=== PATIENT | female | born 1990 | race Caucasian/White ===

== ENCOUNTER → 2017-01-14 | Outpatient (CLI) | payer BC ==
--- NOTE | 2017-01-14 15:50 | RAD ---
Indication:Nausea and vomiting Grayscale images of the abdomen were obtained. Comparison none Liver:No focal mass is seen in the visualized liver. Gallbladder:Normal. The common bile duct diameter of 3 to 4 mm is normal Spleen:Normal Pancreas:Normal Kidneys:Normal Abdominal aorta and IVC:Normal Ancillary findings:None Impression:Normal study
== END | disposition home or self-care (01) ==
LOC: US 15:06
PROVIDERS: ATTEND Internal Medicine Gastroenterology
DX: R11.2 Nausea with vomiting, unspecified (principal)
CPT/HCPCS: 76700

== ENCOUNTER 2017-01-21 18:55 | Emergency (ER) | payer BC ==
[~2017-01-21] VITALS: Ht 162.6 cm; Wt 72.6 kg
--- NOTE | 2017-01-21 19:16 | PHYS DOC ---
Adult General Chief Complaint Chief Complaint: NAUSEA/VOMITING/DIARRHA HPI HPI Patient is a 26 year old female presenting to the emergency department for evaluation of abdominal pain nausea vomiting and diarrhea. The symptoms have been going on for approximately 6 days but per mother she has been having monthly episodes like this and has seen a specialist including GI and had upper endoscopy and ultrasound. Abdominal pain is primarily epigastric and right upper quadrant and associated with nonbloody nonbilious emesis. She said that she has had no nausea and vomiting today that she has approximate 5-6 episodes of watery diarrhea a day. Diarrhea is nonbloody. She denies any recent antibiotic use or foreign travel. Patient has no fevers or chills. She is nontoxic appearing in no obvious distress with normal vital signs. Review of Systems Review of Systems Constitutional: Denies fever or chills [] Respiratory: Denies cough or shortness of breath [] Cardiovascular: No additional information not addressed in HPI [] GI: + abdominal pain, nausea, vomiting, diarrhea [] : Denies dysuria or hematuria [] Musculoskeletal: Denies back pain or joint pain [] Neurologic: Denies headache, focal weakness or sensory changes [] Current Medications Current Medications Current Medications Medications (Trade) Dose Ordered Sig/Cole Start Time Stop Time Status Last Admin Dose Admin Iohexol (Omnipaque 300 Mg/ml) 75 ml STK-MED ONCE 01/21/17 21:44 01/21/17 21:45 DC Allergies Allergies Allergies Coded Allergies Type Severity Reaction Last Updated Verified No Known Drug Allergies 01/21/17 No Physical Exam Physical Exam Constitutional: Well developed, well nourished, no acute distress, non-toxic appearance. [] Cardiovascular:Heart rate regular rhythm, no murmur [] Lungs & Thorax: Bilateral breath sounds clear to auscultation [] Abdomen: Bowel sounds normal, soft, + epigastric and RUQ tenderness, no rebound or guarding, no masses, no pulsatile masses. [] Skin: Warm, dry, no erythema, no rash. [] Back: No tenderness, no CVA tenderness. [] Current Patient Data Vital Signs Vital Signs Date Time Temp Pulse Resp B/P (MAP) Pulse Ox O2 Delivery O2 Flow Rate FiO2 01/21/17 21:45 84 29 106/69 (81) 91 Room Air 01/21/17 19:28 98.2 98.2 Lab Values Laboratory Tests Test 01/21/17 19:10 01/21/17 19:30 White Blood Count 8.5 x10^3/uL (4.0-11.0) Red Blood Count 4.82 x10^6/uL (3.50-5.40) Hemoglobin 14.2 g/dL (12.0-15.5) Hematocrit 42.7 % (36.0-47.0) Mean Corpuscular Volume 89 fL (79-100) Mean Corpuscular Hemoglobin 30 pg (25-35) Mean Corpuscular Hemoglobin Concent 33 g/dL (31-37) Red Cell Distribution Width 13.4 % (11.5-14.5) Platelet Count 334 x10^3/uL (140-400) Neutrophils (%) (Auto) 61 % (31-73) Lymphocytes (%) (Auto) 27 % (24-48) Monocytes (%) (Auto) 9 % (0-9) Eosinophils (%) (Auto) 3 % (0-3) Basophils (%) (Auto) 1 % (0-3) Neutrophils # (Auto) 5.2 x10^3uL (1.8-7.7) Lymphocytes # (Auto) 2.3 x10^3/uL (1.0-4.8) Monocytes # (Auto) 0.8 x10^3/uL (0.0-1.1) Eosinophils # (Auto) 0.2 x10^3/uL (0.0-0.7) Basophils # (Auto) 0.1 x10^3/uL (0.0-0.2) Urine Collection Type Unknown Urine Color Yellow Urine Clarity Cloudy Urine pH 6.0 Urine Specific [place] 1.020 Urine Protein Negative mg/dL (NEG-TRACE) Urine Glucose (UA) Negative mg/dL (NEG) Urine Ketones (Stick) Trace mg/dL (NEG) Urine Blood Negative (NEG) Urine Nitrite Negative (NEG) Urine Bilirubin Small (NEG) Urine Urobilinogen Dipstick 0.2 mg/dL (0.2 mg/dL) Urine Leukocyte Esterase Negative (NEG) Urine RBC 0 /HPF (0-2) Urine WBC Occ /HPF (0-4) Urine Squamous Epithelial Cells Many /LPF Urine Bacteria Moderate /HPF (0-FEW) Urine Mucus Marked /LPF Sodium Level 140 mmol/L (136-145) Potassium Level 3.5 mmol/L (3.5-5.1) Chloride Level 102 mmol/L (98-107) Carbon Dioxide Level 29 mmol/L (21-32) Anion Gap 9 (6-14) Blood Urea Nitrogen 7 mg/dL (7-20) Creatinine 0.7 mg/dL (0.6-1.0) Estimated GFR (Cockcroft-Gault) 99.6 BUN/Creatinine Ratio 10 (6-20) Glucose Level 95 mg/dL (70-99) Calcium Level 9.0 mg/dL (8.5-10.1) Magnesium Level 1.9 mg/dL (1.8-2.4) Total Bilirubin 0.3 mg/dL (0.2-1.0) Aspartate Amino Transferase (AST) 18 U/L (15-37) Alanine Aminotransferase (ALT) 18 U/L (14-59) Alkaline Phosphatase 83 U/L (46-116) Total Protein 7.9 g/dL (6.4-8.2) Albumin 4.2 g/dL (3.4-5.0) Albumin/Globulin Ratio 1.1 (1.0-1.7) Lipase 208 U/L (73-393) POC Urine HCG, Qualitative Hcg negative (Negative) Laboratory Tests 01/21/17 19:10 Laboratory Tests 01/21/17 19:10 EKG EKG [] Radiology/Procedures Radiology/Procedures CT ABD PELV W/ IV CONTRST ONLY dated 01/21/2017 8:12 PM Indication: Abdominal pain nausea vomitingsevere upper abd pain, N/V/D since Thursday, no priors, [id number] 75ml. Comparison: No comparison is available. Technique: Contiguous axial imaging of the abdomen and pelvis performed after the administration of 75 cc Omnipaque 300 One or more of the following individualized dose reduction techniques were utilized for this examination: 1. Automated exposure control 2. Adjustment of the mA and/or kV according to patient size 3. Use of iterative reconstruction technique Findings: Limited images of lung bases are clear. Heart size within normal limits. No pleural or pericardial effusion. Liver, spleen, pancreas, adrenal glands, gallbladder and kidneys are unremarkable. No hydronephrosis. There is a suspected small calcific stone at the mid to lower pole right kidney that measures 2 to 3 mm in size. Unopacified GI tract normal in caliber and contour. No focal bowel wall thickening. The appendix is not clearly identified. No inflammatory changes in the mesentery. No ascites or lymphadenopathy. Images of pelvis show nondistended urinary bladder. Uterus and adnexa are unremarkable. No free fluid or lymphadenopathy. Bone windows show no acute findings. IMPRESSION: 1. No acute abnormality of abdomen or pelvis. 2. Possible right-sided nephrolithiasis, nonobstructive. 3. The appendix is not clearly identified. No inflammatory changes in the mesentery. Electronically signed by: Ritesh Partida MD (01/21/2017 8:44 PM) [facility] DICTATED and SIGNED BY: RITESH PARTIDA MD DATE: 01/21/172027 Course & Med Decision Making Course & Med Decision Making Patient with nonspecific abdominal pain nausea vomiting and diarrhea. Laboratory analysis is very normal. They seem frustrated that this keeps coming back and there is no definitive answer however I do not suspect an acute etiology at this time. Stool studies may help the patient or that anything else at this point but she has been in the emergency department for over 4 hours and she has been unable to provide a stool sample. I will order outpatient studies and have her follow with her GI doctor and have her come back with any new worsening pain fevers vomiting or other general concerns. Patient aware and agreeable with plan for discharge and verbalized understanding of the need for short-term follow-up and strict ED return precautions discussed worsening pain fevers vomiting or other general concerns. Dragon Disclaimer Dragon Disclaimer This electronic medical record was generated, in whole or in part, using a voice recognition dictation system. Departure Departure Impression: Primary Impression: Abdominal pain Additional Impressions: Nausea & vomiting Diarrhea Disposition: 01 HOME, SELF-CARE Condition: STABLE Referrals: NON,STAFF (PCP) Patient Instructions: Diarrhea Additional Instructions: FOLLOW WITH YOUR GI DOC REGARDING YOUR STOOL STUDIES. COME BACK TO THE ED SOONER WITH ANY NEW OR WORSENING SYMPTOMS. THANK YOU! Scripts Ondansetron (ZOFRAN ODT) 4 Mg Tab.rapdis 4 MG PO BID Y for NAUSEA/VOMITING, #10 TAB Prov: GERALDINE CARREON DO 01/21/17 Problem Qualifiers Primary Impression: Abdominal pain Abdominal location: upper abdomen, unspecified Qualified Codes: R10.10 - Upper abdominal pain, unspecified GERALDINE CARREON DO Jan 21, 2017 19:16
[2017-01-21 19:48] LABS: BASO # 0.1 x10^3/uL (0.0-0.2); BASO % 1 % (0-3); EOS % 3 % (0-3); HEMATOCRIT 42.7 % (36.0-47.0); HEMOGLOBIN 14.2 g/dL (12.0-15.5); LYMPH # 2.3 x10^3/uL (1.0-4.8); LYMPH % 27 % (24-48); MEAN CORPUSCULAR HEMOGLOBIN 30 pg (25-35); MEAN CORPUSCULAR HGB CONC 33 g/dL (31-37); MEAN CORPUSCULAR VOLUME 89 fL (79-100); MONO % 9 % (0-9); NEUT % 61 % (31-73); PLATELET COUNT 334 x10^3/uL (140-400); RED BLOOD COUNT 4.82 x10^6/uL (3.50-5.40); RED CELL DISTRIBUTION WIDTH 13.4 % (11.5-14.5); WHITE BLOOD COUNT 8.5 x10^3/uL (4.0-11.0)
[2017-01-21 19:50] LABS: BILIRUBIN,URINE SMALL (NEG); GLUCOSE,URINE NEGATIVE (NEG); NITRITE,URINE NEGATIVE (NEG); PROTEIN,URINE NEGATIVE (NEG-TRACE); UROBILINOGEN,URINE 0.2 mg/dL (0.2 mg/dL)
[2017-01-21 19:55] LABS: BACTERIA,URINE MODERATE /HPF (0-FEW); RBC,URINE 0 /HPF (0-2); SQUAMOUS EPITHELIAL CELL,UR MANY /LPF; WBC,URINE OCC /HPF (0-4)
[2017-01-21] MEDS ORDERED: IOHEXOL 300 MG/ML 75 ML VIAL IV ONE (20:00)
[2017-01-21 20:05] LABS: CREATININE 0.7 mg/dL (0.6-1.0); GFR 99.6; POTASSIUM 3.5 mmol/L (3.5-5.1)
[2017-01-21 20:11] LABS: ALBUMIN 4.2 g/dL (3.4-5.0); ALBUMIN/GLOBULIN RATIO 1.1 (1.0-1.7); MAGNESIUM 1.9 mg/dL (1.8-2.4); TOTAL BILIRUBIN 0.3 mg/dL (0.2-1.0); TOTAL PROTEIN 7.9 g/dL (6.4-8.2)
--- NOTE | 2017-01-21 20:48 | RAD ---
CT ABD PELV W/ IV CONTRST ONLY dated 01/21/2017 8:12 PM Indication: Abdominal pain nausea vomitingsevere upper abd pain, N/V/D since Thursday, no priors, [id number] 75ml. Comparison: No comparison is available. Technique: Contiguous axial imaging of the abdomen and pelvis performed after the administration of 75 cc Omnipaque 300 One or more of the following individualized dose reduction techniques were utilized for this examination: 1. Automated exposure control 2. Adjustment of the mA and/or kV according to patient size 3. Use of iterative reconstruction technique Findings: Limited images of lung bases are clear. Heart size within normal limits. No pleural or pericardial effusion. Liver, spleen, pancreas, adrenal glands, gallbladder and kidneys are unremarkable. No hydronephrosis. There is a suspected small calcific stone at the mid to lower pole right kidney that measures 2 to 3 mm in size. Unopacified GI tract normal in caliber and contour. No focal bowel wall thickening. The appendix is not clearly identified. No inflammatory changes in the mesentery. No ascites or lymphadenopathy. Images of pelvis show nondistended urinary bladder. Uterus and adnexa are unremarkable. No free fluid or lymphadenopathy. Bone windows show no acute findings. IMPRESSION: 1. No acute abnormality of abdomen or pelvis. 2. Possible right-sided nephrolithiasis, nonobstructive. 3. The appendix is not clearly identified. No inflammatory changes in the mesentery. Electronically signed by: Ritesh Partida MD (01/21/2017 8:44 PM) [facility]
[2017-01-21] MEDS ORDERED: IOHEXOL 300 MG/ML 75 ML VIAL ONE (21:44)
[2017-01-21 22:45] VITALS: BP 102/67
[2017-01-21] MEDS ORDERED: ONDA4TAB10 PO (22:57)
== END 2017-01-21 23:11 | disposition home or self-care (01) ==
LOC: ER 18:55
DX: R10.11 Right upper quadrant pain (principal); R11.2 Nausea with vomiting, unspecified; R19.7 Diarrhea, unspecified; R10.13 Epigastric pain
CPT/HCPCS: 36415; 74177; 80053; 81001; 81025; 83690; 83735; 85025; 87086; 99285; Q9967

== ENCOUNTER 2017-11-24 19:49 | Emergency (ER) | payer BC | END 2017-11-24 21:05 | disposition home or self-care (01) | LOC: ER 19:49 | DX: H53.8 Other visual disturbances (principal) | CPT/HCPCS: 99282 ==

== ENCOUNTER 2019-01-16 02:31 | Emergency (ER) | payer BC, OTHER ==
[~2019-01-16] VITALS: Ht 165.1 cm; Wt 74.8 kg
[~2019-01-16 02:31] MED LIST: ONDA4TAB10 PO
[2019-01-16 02:44] VITALS: BP 142/109
[2019-01-16] MEDS ORDERED: GUAI473L15 PO (02:56)
--- NOTE | 2019-01-16 02:56 | PHYS DOC ---
Past Medical History Past Medical History: Bronchitis Additional Past Medical Histor: chronic vomiting, diarrhea Past Surgical History: No Surgical History Additional Past Surgical Histo: repair of colon at time of appendectomy Alcohol Use: Occasionally Drug Use: None Adult General Chief Complaint Chief Complaint: Congestion HPI HPI Patient is a 28-year-old female with a history of bronchitis. She is being actively treated by a physician. She has just been started on an albuterol inhaler, prednisone and Tessalon Perles. She states she's continuing to cough. She states she had a coughing fit tonight took her albuterol inhaler and it didn't help so she became concerned and came in for further evaluation. She denies any fever chills or sweats. She's not had any hemoptysis. She states her chest does hurt when she coughs.[] Review of Systems Review of Systems Constitutional: Denies fever or chills [] Eyes: Denies change in visual acuity, redness, or eye pain [] HENT: Denies nasal congestion or sore throat [] Respiratory: Per history of present illness[] Cardiovascular: No additional information not addressed in HPI [] GI: Denies abdominal pain, nausea, vomiting, bloody stools or diarrhea [] : Denies dysuria or hematuria [] Musculoskeletal: Denies back pain or joint pain [] Integument: Denies rash or skin lesions [] Neurologic: Denies headache, focal weakness or sensory changes [] Endocrine: Denies polyuria or polydipsia [] All other systems were reviewed and found to be within normal limits, except as documented in this note. Allergies Allergies Allergies Coded Allergies Type Severity Reaction Last Updated Verified No Known Drug Allergies 01/21/17 No Physical Exam Physical Exam Constitutional: Well developed, well nourished, no acute distress, non-toxic appearance, she is able to talk in full sentences and give me her entire history without coughing wants. [] HENT: Normocephalic, atraumatic, bilateral external ears normal, oropharynx moist, no oral exudates, nose normal. [] Eyes: PERRLA, EOMI, conjunctiva normal, no discharge. [] Neck: Normal range of motion, no tenderness, supple, no stridor. [] Cardiovascular:Heart rate regular rhythm, no murmur [] Lungs & Thorax: Bilateral breath sounds clear to auscultation [] Skin: Warm, dry, no erythema, no rash. [] Neurologic: Alert and oriented X 3, normal motor function, normal sensory function, no focal deficits noted. [] Psychologic: She appears very anxious. [] Current Patient Data Vital Signs Vital Signs Date Time Temp Pulse Resp B/P (MAP) Pulse Ox O2 Delivery O2 Flow Rate FiO2 01/16/19 02:44 98.1 90 18 142/109 (120) 99 Room Air 98.1 EKG EKG [] Radiology/Procedures Radiology/Procedures [] Course & Med Decision Making Course & Med Decision Making Pertinent Labs and Imaging studies reviewed. (See chart for details) [] Dragon Disclaimer Dragon Disclaimer This electronic medical record was generated, in whole or in part, using a voice recognition dictation system. Departure Departure Impression: Primary Impression: Bronchitis Disposition: 01 HOME, SELF-CARE Condition: STABLE Referrals: SHIV JANE MD (PCP) Patient Instructions: Cough, Adult Additional Instructions: Follow-through primary care physician this week for recheck. Scripts Guaifenesin/Codeine Phosphate (GUAIFENESIN AC COUGH SYRUP) 473 Ml Liquid 5 ML PO Q4-6HRS, #75 ML Prov: ABBE LAWRENCE DO 01/16/19 ABBE LAWRENCE DO Jan 16, 2019 02:56
== END 2019-01-16 03:02 | disposition home or self-care (01) ==
LOC: ER 02:31
DX: J40 Bronchitis, not specified as acute or chronic (principal); Z90.89 Acquired absence of other organs
CPT/HCPCS: 12013; 99284

== ENCOUNTER 2019-06-30 15:10 | Emergency (ER) | payer OTHER ==
[~2019-06-30] VITALS: Ht 165.1 cm; Wt 72.7 kg
[~2019-06-30 15:10] MED LIST changes: +GUAI473L15 PO
[2019-06-30] MEDS ORDERED: IV NORMAL SALINE 1000ML BAG 1,000 ML IV ONE (15:45)
--- NOTE | 2019-06-30 15:53 | EKG ---
[facility] [address] [place] [address] Test Date: 2019-06-30 Test Time: 15:21:09 Pat Name: MEGGAN KEITH Department: Room: Gender: F Production Operations Inspector: : 1990 Requested By: MARGY GARCIA Order Number: [id number] Reading MD: Measurements Intervals Leonardo Rate: 78 P: 69 DE: 144 QRS: 67 QRSD: 84 T: 35 QT: 402 QTc: 462 Interpretive Statements SINUS RHYTHM QRS(T) CONTOUR ABNORMALITY CONSIDER ANTEROLATERAL MYOCARDIAL DAMAGE POSSIBLY ABNORMAL ECG RI6.01 No previous ECG available for comparison
[2019-06-30 15:58] LABS: BASO # 0.1 x10^3/uL (0.0-0.2); BASO % 1 % (0-3); EOS # 0.4 x10^3/uL (0.0-0.7); EOS % 6 % (0-3); HEMATOCRIT 38.4 % (36.0-47.0); HEMOGLOBIN 12.7 g/dL (12.0-15.5); LYMPH # 2.7 x10^3/uL (1.0-4.8); LYMPH % 39 % (24-48); MEAN CORPUSCULAR HEMOGLOBIN 29 pg (25-35); MEAN CORPUSCULAR HGB CONC 33 g/dL (31-37); MEAN CORPUSCULAR VOLUME 86 fL (79-100); MONO # 0.9 x10^3/uL (0.0-1.1); MONO % 12 % (0-9); NEUT % 42 % (31-73); PLATELET COUNT 348 x10^3/uL (140-400); RED BLOOD COUNT 4.45 x10^6/uL (3.50-5.40); RED CELL DISTRIBUTION WIDTH 13.7 % (11.5-14.5); WHITE BLOOD COUNT 7.1 x10^3/uL (4.0-11.0)
--- NOTE | 2019-06-30 16:10 | RAD ---
PORTABLE CHEST 1V History: Palpitations. Comparison: None. Findings: No consolidation or pleural effusion. Normal heart size. No pneumothorax. Impression: 1. No acute cardiopulmonary process. Electronically signed by: Charanjit Posey DO (06/30/2019 4:07 PM) [email or web address]
[2019-06-30 16:11] LABS: PROTHROMBIN TIME PATIENT 12.4 SEC (11.7-14.0)
[2019-06-30 16:12] LABS: CALCIUM 8.3 mg/dL (8.5-10.1); CREATININE 0.7 mg/dL (0.6-1.0); GFR 97.6; POTASSIUM 3.4 mmol/L (3.5-5.1)
[2019-06-30 16:17] LABS: ALBUMIN 3.9 g/dL (3.4-5.0); ALBUMIN/GLOBULIN RATIO 1.3 (1.0-1.7); MAGNESIUM 2.3 mg/dL (1.8-2.4); TOTAL BILIRUBIN 0.3 mg/dL (0.2-1.0); TOTAL PROTEIN 6.9 g/dL (6.4-8.2)
[2019-06-30 17:49] LABS: BILIRUBIN,URINE NEGATIVE (NEG); CLARITY,URINE CLEAR; COLOR,URINE YELLOW; NITRITE,URINE NEGATIVE (NEG); PH,URINE 6.5; PROTEIN,URINE NEGATIVE (NEG-TRACE); UROBILINOGEN,URINE 0.2 mg/dL (0.2 mg/dL)
--- NOTE | 2019-06-30 17:51 | PHYS DOC ---
Past Medical History Past Medical History: Bipolar, Bronchitis Additional Past Medical Histor: chronic vomiting, diarrhea Past Surgical History: Appendectomy, Tonsillectomy Additional Past Surgical Histo: repair of colon at time of appendectomy Smoking Status: Former Smoker Alcohol Use: Occasionally Drug Use: None Adult General Chief Complaint Chief Complaint: Palpitations HPI HPI Patient is a 29 year old female with history of bipolar who presents to the ED today complaining over her heart racing, symptoms began this afternoon while she was working at [employer]. She reports tingling to bilateral fingers. Patient denies any chest pain, denies any shortness of breath. Review of Systems Review of Systems Constitutional: Denies fever or chills [] Eyes: Denies change in visual acuity, redness, or eye pain [] HENT: Denies nasal congestion or sore throat [] Respiratory: Denies cough or shortness of breath [] Cardiovascular: Reports palpitations. No additional information not addressed in HPI [] GI: Denies abdominal pain, nausea, vomiting, bloody stools or diarrhea [] : Denies dysuria or hematuria [] Musculoskeletal: Denies back pain or joint pain [] Integument: Denies rash or skin lesions [] Neurologic: Denies headache, focal weakness or sensory changes [] Psych: Reports tingling to bilateral fingers. All other systems were reviewed and found to be within normal limits, except as documented in this note. Current Medications Current Medications Current Medications Medications (Trade) Dose Ordered Sig/Cole Start Time Stop Time Status Last Admin Dose Admin Sodium Chloride 1,000 ml @ 1,000 mls/hr 1X ONCE 06/30/19 15:45 06/30/19 16:44 DC 06/30/19 15:53 1,000 MLS/HR Allergies Allergies Allergies Coded Allergies Type Severity Reaction Last Updated Verified No Known Drug Allergies 01/21/17 No Physical Exam Physical Exam Constitutional: Well developed, well nourished, no acute distress, non-toxic appearance. [] HENT: Normocephalic, atraumatic, bilateral external ears normal, oropharynx moist, no oral exudates, nose normal. [] Eyes: PERRLA, EOMI, conjunctiva normal, no discharge. [] Neck: Normal range of motion, no tenderness, supple, no stridor. [] Cardiovascular:Heart rate regular rhythm, no murmur [] Lungs & Thorax: Bilateral breath sounds clear to auscultation [] Abdomen: Bowel sounds normal, soft, no tenderness, no masses, no pulsatile masses. [] Skin: Warm, dry, no erythema, no rash. [] Back: No tenderness, no CVA tenderness. [] Extremities: No tenderness, no cyanosis, no clubbing, ROM intact, no edema. [] Neurologic: Alert and oriented X 3, normal motor function, normal sensory function, no focal deficits noted. [] Psychologic: Affect normal, judgement normal, mood normal. [] Current Patient Data Vital Signs Vital Signs Date Time Temp Pulse Resp B/P (MAP) Pulse Ox O2 Delivery O2 Flow Rate FiO2 06/30/19 15:10 97.6 80 16 132/86 (101) 100 Room Air 97.6 Lab Values Laboratory Tests Test 06/30/19 15:50 White Blood Count 7.1 x10^3/uL (4.0-11.0) Red Blood Count 4.45 x10^6/uL (3.50-5.40) Hemoglobin 12.7 g/dL (12.0-15.5) Hematocrit 38.4 % (36.0-47.0) Mean Corpuscular Volume 86 fL (79-100) Mean Corpuscular Hemoglobin 29 pg (25-35) Mean Corpuscular Hemoglobin Concent 33 g/dL (31-37) Red Cell Distribution Width 13.7 % (11.5-14.5) Platelet Count 348 x10^3/uL (140-400) Neutrophils (%) (Auto) 42 % (31-73) Lymphocytes (%) (Auto) 39 % (24-48) Monocytes (%) (Auto) 12 % (0-9) H Eosinophils (%) (Auto) 6 % (0-3) H Basophils (%) (Auto) 1 % (0-3) Neutrophils # (Auto) 3.0 x10^3/uL (1.8-7.7) Lymphocytes # (Auto) 2.7 x10^3/uL (1.0-4.8) Monocytes # (Auto) 0.9 x10^3/uL (0.0-1.1) Eosinophils # (Auto) 0.4 x10^3/uL (0.0-0.7) Basophils # (Auto) 0.1 x10^3/uL (0.0-0.2) Prothrombin Time 12.4 SEC (11.7-14.0) Prothrombin Time INR 1.0 (0.8-1.1) Sodium Level 138 mmol/L (136-145) Potassium Level 3.4 mmol/L (3.5-5.1) L Chloride Level 104 mmol/L (98-107) Carbon Dioxide Level 25 mmol/L (21-32) Anion Gap 9 (6-14) Blood Urea Nitrogen 11 mg/dL (7-20) Creatinine 0.7 mg/dL (0.6-1.0) Estimated GFR (Cockcroft-Gault) 97.6 BUN/Creatinine Ratio 16 (6-20) Glucose Level 99 mg/dL (70-99) Calcium Level 8.3 mg/dL (8.5-10.1) L Magnesium Level 2.3 mg/dL (1.8-2.4) Total Bilirubin 0.3 mg/dL (0.2-1.0) Aspartate Amino Transferase (AST) 16 U/L (15-37) Alanine Aminotransferase (ALT) 17 U/L (14-59) Alkaline Phosphatase 74 U/L (46-116) Creatine Kinase 117 U/L (26-192) Creatine Kinase MB (Mass) 0.7 ng/mL (0.0-3.6) Creatine Kinase MB Relative Index 0.6 % (0-4) Troponin I Quantitative < 0.017 ng/mL (0.000-0.055) JC-Ukb-E-Type Natriuretic Peptide 55 pg/mL (0-124) Total Protein 6.9 g/dL (6.4-8.2) Albumin 3.9 g/dL (3.4-5.0) Albumin/Globulin Ratio 1.3 (1.0-1.7) Thyroid Stimulating Hormone (TSH) 0.789 uIU/mL (0.358-3.74) Laboratory Tests 06/30/19 15:50 Laboratory Tests 06/30/19 15:50 EKG EKG 1524 interpreted by sinus rhythm heart rate 78 no STEMI[] Radiology/Procedures Radiology/Procedures []PROCEDURE: PORTABLE CHEST 1V PORTABLE CHEST 1V History: Palpitations. Comparison: None. Findings: No consolidation or pleural effusion. Normal heart size. No pneumothorax. Impression: 1. No acute cardiopulmonary process. Electronically signed by: Charanjit Posey DO (06/30/2019 4:07 PM) [id number] DICTATED and SIGNED BY: CHARANJIT POSEY DO DATE: 06/30/191606 Course & Med Decision Making Course & Med Decision Making Pertinent Labs and Imaging studies reviewed. (See chart for details) This is a 29-year-old female patient presented to the ED today complaining of palpitations that began this afternoon. Patient's heart rates has been in the 70s and 80s in the ED, EKG was negative, chest x-ray is negative, CBC CMP troponin CK-MB were negative for any acute findings. Patient was discharged to home with instructions to follow-up with cardiology as well as PCP. Dragon Disclaimer Dragon Disclaimer This electronic medical record was generated, in whole or in part, using a voice recognition dictation system. Departure Departure Impression: Primary Impression: Palpitations Disposition: 01 HOME, SELF-CARE Condition: STABLE Referrals: SHIV JANE MD (PCP) Follow-up in one week PATI RUTLEDGE MD Follow up in one week Patient Instructions: Palpitations, [id number] Additional Instructions: You were evaluated in the emergency for palpitations, your work up in the emerg ency room is negative for any acute findings please follow-up with your primary care doctor as well as the provided homemaker companion in one week. Come back to the ED at any point symptoms worsen. MARGY GARCIA APRN Jun 30, 2019 17:51
[2019-06-30 17:53] LABS: BARBITURATES NEG (NEG); BENZODIAZEPINES NEG (NEG); CANNABINOIDS NEG (NEG); COCAINE NEG (NEG); METHADONE NEG (NEG); OPIATES NEG (NEG); PHENCYCLIDINE NEG (NEG)
[2019-06-30 17:54] LABS: AMPHETAMINE/METHAMPHETAMINE POS (NEG)
[2019-06-30 18:02] VITALS: BP 115/75
[2019-06-30 18:11] LABS: BACTERIA,URINE MOD /HPF (0-FEW); RBC,URINE 0 /HPF (0-2); SQUAMOUS EPITHELIAL CELL,UR MANY /LPF
== END 2019-06-30 18:02 | disposition home or self-care (01) ==
LOC: ER 15:10
DX: R00.2 Palpitations (principal); F31.9 Bipolar disorder, unspecified; Z87.891 Personal history of nicotine dependence
CPT/HCPCS: 36415; 71045; 80053; 80307; 81001; 82553; 83735; 83880; 84443; 84484; 85025; 85610; 93005; 99285; J7030

== ENCOUNTER → 2020-05-21 | Outpatient (CLI) | payer OTHER ==
[~2020-05-21] MED LIST changes: +LOPE2TAB27 PO
--- NOTE | 2020-05-21 17:27 | RAD ---
Examination: 1. Digital bilateral diagnostic mammogram. 2. Limited bilateral breast ultrasound. INDICATION: 30-year-old woman with bilateral breast pain. COMPARISON: None. This will serve as a baseline. TECHNIQUE: CC and MLO views of both breasts were obtained with 2-D and 3-D technique and reviewed wit h computer-aided detection. Targeted ultrasound of the areas of breast pain in each breast was next p ursued. FINDINGS: The breast parenchyma is extremely dense. No dominant mass, suspicious calcification, or architectural distortion. No mammographic correlate to the areas of focal pain in either breast was observed. Automotive Customer Experience Advisor sonographic images were acquired in the areas of focal breast pain on each side as rep orted by the patient. In the right breast, these were at the 9:30 o'clock position from nipple to chest wall. In the left breast, this was at the 2:00 position 7 cm from the nipple where a sonographically benign 6 mm cyst was identified. It contains low-level internal echoes and no associated vascularity. It is sonographically benign. IMPRESSION: Benign findings on bilateral diagnostic mammogram and targeted breast ultrasound in the areas of foca l breast pain bilaterally. No evidence of malignancy. BI-RADS Category 2 Benign findings Recommend clinical management which may include biopsy if there are any clinically suspicious finding s. In the absence of any clinically suspicious findings, age-appropriate routine mammographic screeni ng is recommended, starting at age 40 in average risk woman. Patient entered into a reminder system with targeted due date for next mammogram. Electronically signed by: Juliet Cartwright MD (05/21/2020 5:24 PM) [id number]
== END ==
LOC: MAMMO 12:51
PROVIDERS: ATTEND Family Medicine
DX: N60.02 Solitary cyst of left breast (principal)
CPT/HCPCS: 76641; 77066; G0279; 77062

== ENCOUNTER 2020-07-19 19:50 | Emergency (ER) | payer OTHER ==
[~2020-07-19] VITALS: Ht 165.1 cm; Wt 79.5 kg
[~2020-07-19 19:50] MED LIST changes: -LOPE2TAB27 PO
[2020-07-19 20:37] LABS: BILIRUBIN,URINE NEGATIVE (NEG); CLARITY,URINE CLEAR; COLOR,URINE YELLOW; NITRITE,URINE NEGATIVE (NEG); PROTEIN,URINE NEGATIVE (NEG-TRACE); UROBILINOGEN,URINE 0.2 mg/dL (0.2 mg/dL)
[2020-07-19] MEDS ORDERED: LOPE2TAB27 PO (20:41)
--- NOTE | 2020-07-19 20:41 | ED.ADGEN ---
Past Medical History Past Medical History: Bipolar, Bronchitis Additional Past Medical Histor: chronic vomiting, diarrhea Past Surgical History: Appendectomy, Tonsillectomy Additional Past Surgical Histo: repair of colon at time of appendectomy Smoking Status: Former Smoker Alcohol Use: Occasionally Drug Use: None General Adult EDM: Chief Complaint: NAUSEA/VOMITING/DIARRHA HPI: HPI: Patient is a 30 year old female coming in for diarrhea, describes as watery, without blood occurring about 3 times per day. Said few days ago she had some nausea and vomiting. Patient states she has "chronic nausea and vomiting" and has Zofran at home. Denies any abdominal pain or cramping. No changes in urination. Denies any intermittent constipation. Was seen in urgent care today and discharged after a negative rapid Covid. Instructed to follow-up with her primary care but came to the emergency department. No fevers, cough, known sick contacts, recent travel, antibiotic use, and no known food allergies. Review of Systems: Review of Systems: All other systems within normal limits except for as noted in the HPI Allergies: Allergies: Allergies Coded Allergies Type Severity Reaction Last Updated Verified No Known Drug Allergies 01/21/17 No Physical Exam: PE: Constitutional: Well developed, well nourished, no acute distress, non-toxic appearance. [] HENT: Normocephalic, atraumatic, bilateral external ears normal, nose normal. [] Eyes: PERRLA, conjunctiva normal, no discharge. [] Neck: No rigidity, supple, no stridor. [] Cardiovascular: Regular rate and rhythm, brisk cap refill [] Lungs & Thorax: Non labored symmetric respirations, no tachypnea or respiratory distress [] Abdomen: Soft, nondistended, no tenderness or guarding palpation, no hepatosplenomegaly, negative Waite sign, no right lower or left lower quadrant abdominal pain. Skin: Warm, dry, no erythema, no rash. [] Back: Unremarkable Extremities: No deformities, range of motion grossly intact, no lower extremity edema [] Neurologic: Alert and oriented X 3, no focal deficits noted. [] Psychologic: Affect normal, judgement normal, mood normal. [] Current Patient Data: Labs: Laboratory Tests Test 07/19/20 20:01 POC Urine HCG, Qualitative Hcg negative (Negative) Vital Signs: Vital Signs Date Time Temp Pulse Resp B/P (MAP) Pulse Ox O2 Delivery O2 Flow Rate FiO2 07/19/20 20:18 98.2 77 18 102/59 (73) 99 Room Air 98.2 EKG: EKG: [] Heart Score: C/O Chest Pain: N/A Risk Factors: Risk Factors: DM, Current or recent (<one month) smoker, HTN, HLP, family history of CAD, obesity. Risk Scores: Score 0 - 3: 2.5% MACE over next 6 weeks - Discharge Home Score 4 - 6: 20.3% MACE over next 6 weeks - Admit for Clinical Observation Score 7 - 10: 72.7% MACE over next 6 weeks - Early Invasive Strategies Radiology/Procedures: Radiology/Procedures: [] Course & Med Decision Making: Course & Med Decision Making Vital signs stable benign abdominal exam. Discussed with patient options for antidiuretic medications. No indication for further evaluation of diarrhea in the emergency department. Discussed importance of follow-up with her primary care physician. Justin Disclaimer: Justin Disclaimer: This electronic medical record was generated, in whole or in part, using a voice recognition dictation system. Departure Departure Impression: Primary Impression: Diarrhea Disposition: 01 DC HOME SELF CARE/HOMELESS Condition: STABLE Referrals: SHIV JANE MD (PCP) Patient Instructions: Diet for Diarrhea, Adult Scripts Loperamide Hcl (LOPERAMIDE) 2 Mg Tablet 1 TAB PO Q4HRS for loose stool for 10 Days, #20 TAB 0 Refills Prov: MEGGAN PARISH MD 07/19/20 MEGGAN PARISH MD Jul 19, 2020 20:41
[2020-07-19 20:48] VITALS: BP 99/63
[2020-07-19 20:53] LABS: BACTERIA,URINE FEW /HPF (0-FEW); RBC,URINE OCC /HPF (0-2)
== END 2020-07-19 20:55 | disposition home or self-care (01) ==
LOC: ER 19:50
DX: R19.7 Diarrhea, unspecified (principal); R11.2 Nausea with vomiting, unspecified; F31.9 Bipolar disorder, unspecified; Z87.891 Personal history of nicotine dependence; Z90.89 Acquired absence of other organs
CPT/HCPCS: 81001; 81025; 87086; 99283

== ENCOUNTER 2020-11-20 06:37 | Emergency (ER) | payer OTHER ==
[~2020-11-20] VITALS: Ht 165.1 cm; Wt 80.0 kg
[~2020-11-20 06:37] MED LIST changes: +LOPE2TAB27 PO
--- NOTE | 2020-11-20 07:33 | ED.ADGEN ---
Past Medical History Past Medical History: Bipolar, Bronchitis Additional Past Medical Histor: chronic vomiting, diarrhea Past Surgical History: Appendectomy, Tonsillectomy Additional Past Surgical Histo: repair of colon at time of appendectomy Smoking Status: Former Smoker Alcohol Use: Occasionally Drug Use: None General Adult EDM: Chief Complaint: SKIN RASH/ABSCESS HPI: HPI: Patient is a 30-year-old female who presents to the emergency room complaining of two different lesions. Patient states that about a week ago she got this wound on the right upper neck in her hairline. She then developed a knot on her right traore. She states yesterday it was swollen and red. She was seen at urgent care and they marked where the wound edges were. She states they put her on antibiotics but she is unsure what antibiotic it was. She states she is only had one dose. She states the wound on her leg has not gotten any bigger. She is concerned because she is having some pain above the wound in her hairline. She states it does not feel like a headache but it feels like an aching pain. She tried to take some Tylenol for it without any relief. She states that the pain is not severe in nature. Review of Systems: Review of Systems: Complete ROS is negative unless otherwise documented in HPI Current Medications: Current Medications Medications (Trade) Dose Ordered Sig/Cole Start Time Stop Time Status Last Admin Dose Admin Methocarbamol (Robaxin) 750 mg 1X ONCE 11/20/20 07:45 11/20/20 07:46 DC 11/20/20 07:50 750 MG Allergies: Allergies: Allergies Coded Allergies Type Severity Reaction Last Updated Verified No Known Drug Allergies 01/21/17 No Physical Exam: PE: General: Awake, alert, NAD. Well Nourished, well hydrated. Cooperative HEENT: Atraumatic, EOMI, PERRL, airway patent, moist oral mucosa Neck: Supple, trachea midline Respiratory: CTA bilaterally, normal effort, no wheezing/crackles CV: RRR, no murmur, cap refill <2 GI: Soft, nondistended, nontender, no masses MSK: No obvious deformities Skin: Warm, dry. R traore: 6x6 cm area of erythema, no induration or fluctuance, no swelling. Right upper neck:1x1cm scabbed over wound without any fluctuance or induration. Erythema at the base of the skull without induration or fluctua nce Neuro: A&O x3, speech NL, sensory and motor grossly intact, no focal deficits Psych: Normal affect, normal mood, not suicidal or homicidal Current Patient Data: Vital Signs: Vital Signs Date Time Temp Pulse Resp B/P (MAP) Pulse Ox O2 Delivery O2 Flow Rate FiO2 11/20/20 07:34 98.1 72 16 108/63 (75) 100 Room Air 98.1 EKG: EKG: [] Heart Score: C/O Chest Pain: N/A Risk Factors: Risk Factors: DM, Current or recent (<one month) smoker, HTN, HLP, family history of CAD, obesity. Risk Scores: Score 0 - 3: 2.5% MACE over next 6 weeks - Discharge Home Score 4 - 6: 20.3% MACE over next 6 weeks - Admit for Clinical Observation Score 7 - 10: 72.7% MACE over next 6 weeks - Early Invasive Strategies Radiology/Procedures: Radiology/Procedures: [] Course & Med Decision Making: Course & Med Decision Making Pertinent Labs and Imaging studies reviewed. (See chart for details) Patient is a 30-year-old female presents to the emergency room complaining of head pain and wounds. Patient does not appear to have an abscess or extension of infection from her small wound in her hairline. She does have some erythema but does not have any swelling, induration, fluctuance. Wound on the leg does not show any signs of an abscess and appears to be stable from yesterday. Unclear at this time what antibiotic she is on. Patient will call me with her antibiotic. Will prescribe her Robaxin to help with some of the pain she is having as her wound is right over her neck muscles which is likely causing some muscle tension. Patient was given Robaxin here in the emergency room. Patient's test results and vitals while in the ED were fully reviewed and discussed with the patient. Patient is stable and at this time does not need admission to the hospital. We have discussed strict return precautions and the importance of following up with their Primary Care Physician. Patient stated understanding and was given an opportunity to ask any questions. Patient is in agreement with plan. Justin Disclaimer: Justin Disclaimer: This electronic medical record was generated, in whole or in part, using a voice recognition dictation system. Departure Departure Impression: Primary Impression: Cellulitis Disposition: HOME / SELF CARE / HOMELESS Condition: STABLE Referrals: SHIV JANE MD (PCP) Patient Instructions: Cellulitis Scripts Methocarbamol (METHOCARBAMOL) 500 Mg Tablet 500 MG PO QID PRN for MUSCLE PAIN for 5 Days, #20 TAB Prov: JAN MAZARIEGOS MD 11/20/20 JAN MAZARIEGOS MD Nov 20, 2020 07:33
[2020-11-20 07:34] VITALS: BP 108/63
[2020-11-20] MEDS ORDERED: METHOCARBAMOL 750 MG TABLET PO ONE (07:45)
[2020-11-20] MEDS ORDERED: METH-561 PO (09:31)
== END 2020-11-20 08:00 | disposition home or self-care (01) ==
LOC: ER 06:37
DX: L03.221 Cellulitis of neck (principal); F31.9 Bipolar disorder, unspecified; Z87.891 Personal history of nicotine dependence
CPT/HCPCS: 99283

== ENCOUNTER 2021-02-09 09:55 | Emergency (ER) | payer OTHER ==
[~2021-02-09] VITALS: Ht 165.1 cm; Wt 86.3 kg
[~2021-02-09 09:55] MED LIST changes: +METH-561 PO
--- NOTE | 2021-02-09 10:25 | ED.ADGEN ---
Past Medical History Past Medical History: Bipolar, Bronchitis Additional Past Medical Histor: chronic vomiting/diarrhea Past Surgical History: Appendectomy, Tonsillectomy, Other Additional Past Surgical Histo: repair of colon at time of appendectomy Smoking Status: Never Smoker Alcohol Use: Rarely Drug Use: None General Adult EDM: Chief Complaint: SYNCOPE HPI: HPI: Patient is a 30 year old female coming in after syncopal episode 1 hour prior to arrival. Patient was in her garage talking to her when she says she felt "oozy" and lightheaded and passed out fell backwards and hit the back of her head. Patient's witnessed the event states that it was about a minute before she was back to normal and denies any convulsions. Patient also states she felt little bit nauseous. Over the past couple days have had about 3 episodes of diarrhea that were nonbloody and nonmelanous. She states she otherwise been well. Last menstrual period 1 week ago. She denied chest pain or shortness of breath prior to event. Patient states that last time she ate was about 12 hours prior to arrival, then took her first dose of clonidine which she had just been prescribed last night around midnight. Patient states that since she woke up this morning she had felt groggy. Review of Systems: Review of Systems: All other systems within normal limits except for as noted in the HPI Current Medications: Current Medications Medications (Trade) Dose Ordered Sig/Cole Start Time Stop Time Status Last Admin Dose Admin Sodium Chloride 1,000 ml @ 1,000 mls/hr 1X ONCE 02/09/21 13:15 02/09/21 14:14 DC 02/09/21 13:10 1,000 MLS/HR Allergies: Allergies: Allergies Coded Allergies Type Severity Reaction Last Updated Verified No Known Drug Allergies 01/21/17 No Physical Exam: PE: Constitutional: Well developed, well nourished, no acute distress, non-toxic appearance. [] HENT: Normocephalic, atraumatic, bilateral external ears normal, nose normal. Occipital tenderness pelvic [] Eyes: PERRLA, conjunctiva normal, no discharge. [] Neck: No rigidity, supple, no stridor. [] Cardiovascular: Regular rate and rhythm, brisk cap refill [] Lungs & Thorax: Non labored symmetric respirations, no tachypnea or respiratory distress [] Abdomen: Soft, nondistended. Skin: Warm, dry, no erythema, no rash. [] Back: Unremarkable Extremities: No deformities, range of motion grossly intact, no lower extremity edema [] Neurologic: Alert and oriented X 3, no focal deficits noted. [] Psychologic: Affect normal, judgement normal, mood normal. [] Current Patient Data: Labs: Laboratory Tests Test 02/09/21 10:06 02/09/21 10:15 02/09/21 14:17 Glucose (Fingerstick) 112 mg/dL (70-99) H White Blood Count 7.0 x10^3/uL (4.0-11.0) Red Blood Count 4.32 x10^6/uL (3.50-5.40) Hemoglobin 12.7 g/dL (12.0-15.5) Hematocrit 38.2 % (36.0-47.0) Mean Corpuscular Volume 89 fL (79-100) Mean Corpuscular Hemoglobin 29 pg (25-35) Mean Corpuscular Hemoglobin Concent 33 g/dL (31-37) Red Cell Distribution Width 13.5 % (11.5-14.5) Platelet Count 360 x10^3/uL (140-400) Neutrophils (%) (Auto) 46 % (31-73) Lymphocytes (%) (Auto) 41 % (24-48) Monocytes (%) (Auto) 8 % (0-9) Eosinophils (%) (Auto) 5 % (0-3) H Basophils (%) (Auto) 1 % (0-3) Neutrophils # (Auto) 3.2 x10^3/uL (1.8-7.7) Lymphocytes # (Auto) 2.9 x10^3/uL (1.0-4.8) Monocytes # (Auto) 0.5 x10^3/uL (0.0-1.1) Eosinophils # (Auto) 0.3 x10^3/uL (0.0-0.7) Basophils # (Auto) 0.0 x10^3/uL (0.0-0.2) Sodium Level 139 mmol/L (136-145) Potassium Level 3.8 mmol/L (3.5-5.1) Chloride Level 103 mmol/L (98-107) Carbon Dioxide Level 28 mmol/L (21-32) Anion Gap 8 (6-14) Blood Urea Nitrogen 13 mg/dL (7-20) Creatinine 0.9 mg/dL (0.6-1.0) Estimated GFR (Cockcroft-Gault) 72.6 BUN/Creatinine Ratio 14 (6-20) Glucose Level 104 mg/dL (70-99) H Calcium Level 8.4 mg/dL (8.5-10.1) L Total Bilirubin 0.3 mg/dL (0.2-1.0) Aspartate Amino Transferase (AST) 14 U/L (15-37) L Alanine Aminotransferase (ALT) 20 U/L (14-59) Alkaline Phosphatase 73 U/L (46-116) Troponin I Quantitative < 0.017 ng/mL (0.000-0.055) JT-Djv-M-Type Natriuretic Peptide 94 pg/mL (0-124) Total Protein 6.9 g/dL (6.4-8.2) Albumin 3.4 g/dL (3.4-5.0) Albumin/Globulin Ratio 1.0 (1.0-1.7) Ethyl Alcohol Level < 10 mg/dL (0-10) Urine Collection Type U cath Urine Color Yellow Urine Clarity Cloudy Urine pH 8.0 (<5.0-8.0) Urine Specific [place] 1.015 (1.000-1.030) Urine Protein Negative mg/dL (NEG-TRACE) Urine Glucose (UA) Negative mg/dL (NEG) Urine Ketones (Stick) Negative mg/dL (NEG) Urine Blood Negative (NEG) Urine Nitrite Negative (NEG) Urine Bilirubin Negative (NEG) Urine Urobilinogen Dipstick 0.2 mg/dL (0.2 mg/dL) Urine Leukocyte Esterase Negative (NEG) Urine RBC Occ /HPF (0-2) Urine WBC Occ /HPF (0-4) Urine Amorphous Sediment Present /HPF Urine Bacteria 0 /HPF (0-FEW) Urine Mucus Slight /LPF Urine Opiates Screen Neg (NEG) Urine Methadone Screen Neg (NEG) Urine Barbiturates Neg (NEG) Urine Phencyclidine Screen Neg (NEG) Urine Amphetamine/Methamphetamine Neg (NEG) Urine Benzodiazepines Screen Neg (NEG) Urine Cocaine Screen Neg (NEG) Urine Cannabinoids Screen Neg (NEG) Urine Ethyl Alcohol Neg (NEG) Laboratory Tests 02/09/21 10:15 Laboratory Tests 02/09/21 10:15 Vital Signs: Vital Signs Date Time Temp Pulse Resp B/P (MAP) Pulse Ox O2 Delivery O2 Flow Rate FiO2 02/09/21 13:58 78 22 119/59 (79) 97 Room Air 02/09/21 10:00 98.1 98.1 EKG: EKG: Sinus rhythm, heart rate 60 bpm, normal axis, no ST elevation or depression, no ectopy. Normal intervals [] Heart Score: C/O Chest Pain: No HEART Score for Chest Pain: HEART Score for Chest Pain Response (Comments) Value History Slighlty/Non-Suspicious 0 ECG Normal 0 Age < 45 0 Risk Factors 1 or 2 Risk Factors 1 Troponin < Normal Limit 0 Total 1 Risk Factors: Risk Factors: DM, Current or recent (<one month) smoker, HTN, HLP, family history of CAD, obesity. Risk Scores: Score 0 - 3: 2.5% MACE over next 6 weeks - Discharge Home Score 4 - 6: 20.3% MACE over next 6 weeks - Admit for Clinical Observation Score 7 - 10: 72.7% MACE over next 6 weeks - Early Invasive Strategies Radiology/Procedures: Radiology/Procedures: [facility] [address] [place] [address] IMAGING REPORT Signed PATIENT: MEGGAN KEITH MACCOUNT: [id number] : 1990 LOCATION: ER AGE: 30 SEX: F EXAM STATUS: REG ER ORD. PHYSICIAN: MEGGAN PARISH MD REASON: syncope and fall PROCEDURE: CT HEAD WO CONTRAST INDICATION: Reason: syncope and fall / Spl. Instructions: / History: COMPARISON: None. TECHNIQUE: Axial CT images obtained through the head without intravenous contrast. One or more of the following individualized dose reduction techniques were utilized for this examination: 1. Automated exposure control; 2. Adjustment of the mA and/or kV according to patient size; 3. Use of iterative reconstruction technique. FINDINGS: No intracranial hemorrhage. No significant midline shift. Ventricles and sulci are unremarkable. No acute osseous abnormality. IMPRESSION: * No acute intracranial hemorrhage. Electronically signed by: Mirlande Boland MD (02/09/2021 11:47 AM) [id number] DICTATED and SIGNED BY: MIRLANDE BOLAND MD DATE: 02/09/21 [id number] [] Course & Med Decision Making: Course & Med Decision Making Pertinent Labs and Imaging studies reviewed. (See chart for details) Work-up unremarkable, discussed with patient to stop taking her clonidine until she follows up with her primary care provider. Patient's blood pressures soft while in emergency department. [place] lightheaded on orthostatic vital signs, given a bolus of fluid [] Dragon Disclaimer: Dragon Disclaimer: This electronic medical record was generated, in whole or in part, using a voice recognition dictation system. Departure Departure Impression: Primary Impression: Syncope and collapse Disposition: HOME / SELF CARE / HOMELESS Condition: STABLE Referrals: SHIV JANE MD (PCP) Patient Instructions: Syncope MEGGAN PARISH MD Feb 09, 2021 10:25
[2021-02-09 10:28] LABS: BASO % 1 % (0-3); EOS # 0.3 x10^3/uL (0.0-0.7); EOS % 5 % (0-3); HEMATOCRIT 38.2 % (36.0-47.0); HEMOGLOBIN 12.7 g/dL (12.0-15.5); LYMPH # 2.9 x10^3/uL (1.0-4.8); LYMPH % 41 % (24-48); MEAN CORPUSCULAR HEMOGLOBIN 29 pg (25-35); MEAN CORPUSCULAR HGB CONC 33 g/dL (31-37); MEAN CORPUSCULAR VOLUME 89 fL (79-100); MONO # 0.5 x10^3/uL (0.0-1.1); MONO % 8 % (0-9); NEUT # 3.2 x10^3/uL (1.8-7.7); NEUT % 46 % (31-73); PLATELET COUNT 360 x10^3/uL (140-400); RED BLOOD COUNT 4.32 x10^6/uL (3.50-5.40); RED CELL DISTRIBUTION WIDTH 13.5 % (11.5-14.5)
[2021-02-09 10:44] LABS: CALCIUM 8.4 mg/dL (8.5-10.1); CREATININE 0.9 mg/dL (0.6-1.0); GFR 72.6; POTASSIUM 3.8 mmol/L (3.5-5.1)
[2021-02-09 10:50] LABS: ALBUMIN 3.4 g/dL (3.4-5.0); TOTAL BILIRUBIN 0.3 mg/dL (0.2-1.0); TOTAL PROTEIN 6.9 g/dL (6.4-8.2)
--- NOTE | 2021-02-09 11:50 | RAD ---
INDICATION: Reason: syncope and fall / Spl. Instructions: / History: COMPARISON: None. TECHNIQUE: Axial CT images obtained through the head without intravenous contrast. One or more of the following individualized dose reduction techniques were utilized for this examinat ion: 1. Automated exposure control; 2. Adjustment of the mA and/or kV according to patient size; 3 . Use of iterative reconstruction technique. FINDINGS: No intracranial hemorrhage. No significant midline shift. Ventricles and sulci are unremarkable. No acute osseous abnormality. IMPRESSION: * No acute intracranial hemorrhage. Electronically signed by: Jluis Washington MD (02/09/2021 11:47 AM) [id number]
[2021-02-09] MEDS ORDERED: IV NORMAL SALINE 1000ML BAG 1,000 ML IV ONE (13:15)
[2021-02-09 14:26] LABS: BILIRUBIN,URINE NEGATIVE (NEG); CLARITY,URINE CLOUDY; COLOR,URINE YELLOW; NITRITE,URINE NEGATIVE (NEG); PROTEIN,URINE NEGATIVE (NEG-TRACE); UROBILINOGEN,URINE 0.2 mg/dL (0.2 mg/dL)
[2021-02-09 14:28] VITALS: BP 104/59
[2021-02-09 14:33] LABS: BARBITURATES NEG (NEG); BENZODIAZEPINES NEG (NEG); CANNABINOIDS NEG (NEG); COCAINE NEG (NEG); METHADONE NEG (NEG); OPIATES NEG (NEG); PHENCYCLIDINE NEG (NEG)
[2021-02-09 14:36] LABS: AMPHETAMINE/METHAMPHETAMINE NEG (NEG)
[2021-02-09 14:41] LABS: AMORPHOUS SEDIMENT,UR PRESENT /HPF
[2021-02-09 14:42] LABS: BACTERIA,URINE 0 /HPF (0-FEW); RBC,URINE OCC /HPF (0-2); WBC,URINE OCC /HPF (0-4)
== END 2021-02-09 15:51 | disposition home or self-care (01) ==
LOC: ER 09:55
DX: R55 Syncope and collapse (principal); F31.9 Bipolar disorder, unspecified
CPT/HCPCS: 36415; 70450; 80053; 80307; 81001; 82962; 83880; 84484; 85025; 96360; 99285; G0480; J7030

== ENCOUNTER 2021-02-12 19:22 | Emergency (ER) | payer OTHER ==
[~2021-02-12] VITALS: Ht 165.1 cm; Wt 80.0 kg
[2021-02-12 20:23] VITALS: BP 125/70
[2021-02-12] MEDS ORDERED: KETOROLAC 15 MG/ML VIAL. IM ONE (21:15)
[2021-02-12] MEDS ORDERED: IV NORMAL SALINE 1000ML BAG 1,000 ML IV ONE (21:30)
[2021-02-12] MEDS ORDERED: PROCHLORPERAZINE 10 MG/2 ML VIAL. IV ONE (21:30)
--- NOTE | 2021-02-12 21:31 | PHYS DOC ---
Past Medical History Past Medical History: Bipolar, Bronchitis Additional Past Medical Histor: chronic vomiting/diarrhea (NAIF OMALLEY APRN) Past Surgical History: Appendectomy, Tonsillectomy Additional Past Surgical Histo: repair of colon at time of appendectomy (NAIF OMALLEY APRN) Smoking Status: Never Smoker Alcohol Use: Rarely Drug Use: None (NAIF OMALLEY APRN) General Adult EDM: Chief Complaint: HEADACHE HPI: HPI: Patient is a 30 year old female who presents with headache since yesterday. Patient reports nausea and light sensitivity. Patient has a history of migraines. Patient reports taking Advil 3 hours ago with no relief. Denies visual changes. Denies thunderclap. History of migraines, bipolar disorder. (NAIF OMALLEY APRN) Review of Systems: Review of Systems: ROS At least 10 ROS systems have been reviewed and are negative except as documented in the HPI. General: Negative except as outlined in HPI above. Skin: Negative except as outlined in HPI above. HEENT: Negative except as outlined in HPI above. Neck: Negative except as outlined in HPI above. Respiratory: Negative except as outlined in HPI above.. Cardiovascular: Negative except as outlined in HPI above. Abdomen: Negative except as outlined in HPI above. : Negative except as outlined in HPI above. Back/MSK: Negative except as outlined in HPI above. Neuro: Negative except as outlined in HPI above. Psych: Negative except as outlined in HPI above. (NAIF OMALLEY APRN) Heart Score: C/O Chest Pain: No Risk Factors: Risk Factors: DM, Current or recent (<one month) smoker, HTN, HLP, family history of CAD, obesity. Risk Scores: Score 0 - 3: 2.5% MACE over next 6 weeks - Discharge Home Score 4 - 6: 20.3% MACE over next 6 weeks - Admit for Clinical Observation Score 7 - 10: 72.7% MACE over next 6 weeks - Early Invasive Strategies (NAIF OMALLEY APRN) Current Medications: Current Medications Medications (Trade) Dose Ordered Sig/Cole Start Time Stop Time Status Last Admin Dose Admin Diphenhydramine HCl (Benadryl) 25 mg 1X ONCE 02/12/21 21:15 02/12/21 21:20 DC Ketorolac Tromethamine (Toradol 15mg Vial) 15 mg 1X ONCE 02/12/21 21:15 10/5/21 21:20 DC Sodium Chloride 1,000 ml @ 0 mls/hr 1X ONCE 02/12/21 21:30 02/12/21 21:31 UNV (NAIF OMALLEY APRN) Allergies: Allergies: Allergies Coded Allergies Type Severity Reaction Last Updated Verified No Known Drug Allergies 01/21/17 No (NAIF OMALLEY APRN) Physical Exam: PE: Constitutional: Well developed, well nourished, no acute distress, non-toxic appearance. [] HENT: Normocephalic, atraumatic, bilateral external ears normal, oropharynx moist, no oral exudates, nose normal. [] Eyes: PERRLA, EOMI, conjunctiva normal, no discharge. [] Neck: Normal range of motion, no tenderness, supple, no stridor. [] Cardiovascular:Heart rate regular rhythm, no murmur [] Lungs & Thorax: Bilateral breath sounds clear to auscultation [] Abdomen: Bowel sounds normal, soft, no tenderness, no masses, no pulsatile masses. [] Skin: Warm, dry, no erythema, no rash. [] Back: No tenderness, no CVA tenderness. [] Extremities: No tenderness, no cyanosis, no clubbing, ROM intact, no edema. [] Neurologic: Alert and oriented X 3, normal motor function, normal sensory function, no focal deficits noted. [] Psychologic: Affect normal, judgement normal, mood normal. [] (NAIF OMALLEY APRN) Current Patient Data: Vital Signs: Vital Signs Date Time Temp Pulse Resp B/P (MAP) Pulse Ox O2 Delivery O2 Flow Rate FiO2 02/12/21 20:23 97.8 67 18 125/70 (88) 99 97.8 (NAIF OMALLEY APRN) EKG: EKG: [] (NAIF OMALLEY APRN) Radiology/Procedures: Radiology/Procedures: [] (NAIF OMALLEY APRN) Course & Med Decision Making: Course & Med Decision Making Pertinent Labs and Imaging studies reviewed. (See chart for details) [] 30-year-old female presents with migraine headache. Reports history of migraines. Patient given Benadryl, 1L NS, Toradol, Compazine. Patient denies thunderclap. Denies worst headache of her life. Denies visual changes. No recent illness. Upon reassessment patient states her pain has resolved. Patient is requesting to be discharged. Patient is hemodynamically stable upon disposition. Advised patient to make a follow-up appointment with PCP. (NAIF OMALLEY APRN) Course & Med Decision Making I have reviewed and was available for consultation in the emergency department for this patient that was seen by midlevel provider. Agree with plan. Aris Carreno DO (ARIS CARRENO DO) Justin Disclaimer: Justin Disclaimer: This electronic medical record was generated, in whole or in part, using a voice recognition dictation system. (NAIF OMALLEY APRN) Departure Departure Impression: Primary Impression: Migraine Qualified Codes: G43.009 - Migraine without aura, not intractable, without status migrainosus Disposition: HOME / SELF CARE / HOMELESS Condition: STABLE Referrals: SHIV JANE MD (PCP) Patient Instructions: Migraine Headache, [id number] Additional Instructions: You are seen emergency room for migraine headache. You were given fluids and medications to help with pain. Your symptoms have resolved. Please follow-up with your PCP for further migraine management. Return emergency room with worsening symptoms or concerns. EMERGENCY DEPARTMENT GENERAL DISCHARGE INSTRUCTIONS Thank you for coming to [facility] Emergency Department (ED) today and trusting us with you care. We trust that you had a positive experience in our Emergency Department. If you wish to speak to the department management, you may call the Director at [phone]. YOUR FOLLOW UP INSTRUCTIONS ARE FOLLOWS: 1. Do you have a private Doctor? If you do not have a private doctor, please ask for a resource list of physicians or clinics that may be able to assist you with follow up care. 2. The Emergency Physicain has interpreted your x-rays. The X-Ray specialist will also review them. If there is a change in the findings, you will be notified in 48 hours when at all possible. 3. A lab test or culture has been done, your results will be reviewed and you will be notified if you need a change in treatment. ADDITIONAL INSTRUCTIONS AND INFORMATION: 1. Your care today has been supervised by a physician who is specially trained in emergency care. Many problems require more than one evaluation for a complete diagnosis and treatment. We recommend that you schedule your follow up appointment as recommended to ensure complete treatment of you illness or injury. If you are unable to obtain follow up care and continue to have a problem, or if your condition worsens, we recommend that you return to the ED. 2. We are not able to safely determine your condition over the phone nor are we able to give sound medical advice over the phone. For these safety reasons, if you call for medical advice we will ask you to come to the ED for further evaluation. 3. If you have any questions regarding these discharge instructions please call the ED at [phone]. SAFETY INFORMATION: In the interest of safety, wellness, and injury prevention; we encourage you to wear your sealbelt, if you smoke; quite smoking, and we encourage family to use a protective helmet for bicycling and other sporting events that present an increased risk for head injury. IF YOUR SYMPTOMS WORSEN OR NEW SYMPTOMS DEVELOP, OR YOU HAVE CONCERNS ABOUT YOUR CONDITION; OR IF YOUR CONDITION WORSENS WHILE YOU ARE WAITING FOR YOUR FOLLOW UP APPOINTMENT; EITHER CONTACT YOUR PRIMARY CARE DOCTOR, THE PHYSICIAN WHOSE NAME AND NUMBER YOU WERE GIVEN, OR RETURN TO THE ED IMMEDIATELY. NAIF OMALLEY APRN Feb 12, 2021 21:31 ARIS CARRENO DO Feb 13, 2021 01:20
[2021-02-12] MEDS: diphenhydrAMINE 50 MG/ML VIAL IM ONE ×2 (21:32→21:44)
[2021-02-12] MEDS ORDERED: diphenhydrAMINE 50 MG/ML VIAL IVP ONE (21:45)
[2021-02-12] MEDS ORDERED: KETOROLAC 15 MG/ML VIAL. IVP ONE (21:45)
== END 2021-02-12 22:45 | disposition home or self-care (01) ==
LOC: ER 19:30
DX: G43.009 Migraine without aura, not intractable, without status migrainosus (principal); F31.9 Bipolar disorder, unspecified; G89.29 Other chronic pain
CPT/HCPCS: 96374; 96375; 99284; J0780; J1200; J1885; J7030